=== PATIENT | female | born 1940 | race Caucasian/White ===

== ENCOUNTER → 2017-02-05 | Outpatient (CLI) | payer MEDICARE ==
[~2017-02-05] MED LIST: ASPIRIN CHEWABL81 MG PO; CALCIUM + D SO1 EACH PO; FISH OIL 1,0001 EACH PO; FUROSEMIDE40 MG PO; IMDUR ER TAB 6060 MG PO; LEVAQUIN750 MG PO; LEVOCETIRIZINE D5 MG PO; LEVOTHYROXINE125 MCG PO; LOPRESSOR 25 MG25 MG PO; MEDROL DOSEPAK 24 MG PO; MONTELUKAST SOD10 MG PO; MUCINEX PO; NEURONTIN 300300 MG PO; NORVASC 5 MG TAB5 MG PO; OXYCODONE HCL5 MG PO; PERCOCET 10-321 EACH PO; PLAVIX 75 MG TA75 MG PO; PRAVACHOL40 MG PO; PROTONIX40 MG PO; SERTRALINE HCL100 MG PO; TRAMADOL HCL50 MG PO; VITAMIN B-1000 MCG/M IM; ZOFRAN4 MG PO
== END ==
LOC: HEART 5 13:37
DX: Z01.811 Encounter for preprocedural respiratory examination (principal); J44.9 Chronic obstructive pulmonary disease, unspecified; R06.02 Shortness of breath; F17.210 Nicotine dependence, cigarettes, uncomplicated; R94.2 Abnormal results of pulmonary function studies
CPT/HCPCS: 71020-FX; 94060; 94729

== ENCOUNTER 2017-04-30 01:04 | Emergency (ER) | payer MEDICARE ==
[~2017-04-30 01:04] MED LIST changes: -ASPIRIN CHEWABL81 MG PO; -CALCIUM + D SO1 EACH PO; -FISH OIL 1,0001 EACH PO; -NORVASC 5 MG TAB5 MG PO; -OXYCODONE HCL5 MG PO; -PERCOCET 10-321 EACH PO
[2017-04-30 02:18] LABS: HEMOGLOBIN 10.2 gm/dl (12.3-15.3); RED BLOOD COUNT 4.04 M/UL (4.00-5.10); WHITE BLOOD COUNT 9.9 K/UL (4.5-11.0)
[2017-04-30 02:27] LABS: BUN/CREATININE RATIO 13 (0-10)
[2017-05-02] MEDS ORDERED: FISH OIL 1,0001 EACH PO (10:11)
[2017-05-02] MEDS ORDERED: CALCIUM + D SO1 EACH PO (10:11)
[2017-05-02] MEDS ORDERED: ASPIRIN CHEWABL81 MG PO (10:12)
[2017-05-02] MEDS ORDERED: NORVASC 5 MG TAB5 MG PO (10:12)
[2017-05-02] MEDS ORDERED: OXYCODONE HCL5 MG PO (10:13)
[2017-05-02] MEDS ORDERED: PERCOCET 10-321 EACH PO (13:50)
== END 2017-04-30 05:00 | disposition home or self-care (01) ==
LOC: ER1 01:04
PROVIDERS: Physician Assistant
DX: S52.91XA Unspecified fracture of right forearm, initial encounter for closed fracture (principal); S09.90XA Unspecified injury of head, initial encounter; Z79.82 Long term (current) use of aspirin; Z79.899 Other long term (current) drug therapy; Z88.0 Allergy status to penicillin; Z88.6 Allergy status to analgesic agent; W22.8XXA Striking against or struck by other objects, initial encounter
CPT/HCPCS: 36415; 70450; 71010; 72125; 72170; 73110; 73130; 80053; 82550; 82553; 83874; 84484; 85025; 93005; 96374; 96375; 99284; J2270; J2405

== ENCOUNTER → 2017-05-02 | Day surgery (SDC) | payer MEDICARE ==
[~2017-05-02] VITALS: Ht 167.6 cm; Wt 49.4 kg
[~2017-05-02] MED LIST changes: +ASPIRIN CHEWABL81 MG PO; +CALCIUM + D SO1 EACH PO; +FISH OIL 1,0001 EACH PO; +NORVASC 5 MG TAB5 MG PO; +OXYCODONE HCL5 MG PO; +PERCOCET 10-321 EACH PO
[2017-05-02 09:30] LABS: HEMOGLOBIN 10.6 gm/dl (12.3-15.3); RED BLOOD COUNT 4.13 M/UL (4.00-5.10); WHITE BLOOD COUNT 15.1 K/UL (4.5-11.0)
[2017-05-02 09:44] LABS: BUN/CREATININE RATIO 23 (0-10)
== END | disposition home or self-care (01) ==
LOC: OR 08:24
PROVIDERS: Orthopaedic Surgery
PROC: 0PSH04Z Reposition Right Radius with Internal Fixation Device, Open Approach (ICD-10-PCS; principal; 2017-05-02 13:15)
DX: S52.571A Other intraarticular fracture of lower end of right radius, initial encounter for closed fracture (principal); I10 Essential (primary) hypertension; J44.9 Chronic obstructive pulmonary disease, unspecified; K21.9 Gastro-esophageal reflux disease without esophagitis; G89.29 Other chronic pain; M54.9 Dorsalgia, unspecified; M81.0 Age-related osteoporosis without current pathological fracture; M19.90 Unspecified osteoarthritis, unspecified site; F32.9 Major depressive disorder, single episode, unspecified; Z85.3 Personal history of malignant neoplasm of breast; Z87.01 Personal history of pneumonia (recurrent); Z87.891 Personal history of nicotine dependence; Z88.0 Allergy status to penicillin; Z88.8 Allergy status to other drugs, medicaments and biological substances; Z79.02 Long term (current) use of antithrombotics/antiplatelets; Z79.82 Long term (current) use of aspirin; Z79.891 Long term (current) use of opiate analgesic; Z79.899 Other long term (current) drug therapy; Z95.0 Presence of cardiac pacemaker; Z98.890 Other specified postprocedural states; W01.10XA Fall on same level from slipping, tripping and stumbling with subsequent striking against unspecified object, initial encounter; Y92.000 Kitchen of unspecified non-institutional (private) residence as the place of occurrence of the external cause
CPT/HCPCS: 36415; 71010; 73100; 76000; 80048; 85027; 93005; C1713; J2250; J3010; J7120

== ENCOUNTER → 2017-08-09 | Outpatient (CLI) | payer MEDICARE | LOC: CT 12:03 | DX: C50.912 Malignant neoplasm of unspecified site of left female breast (principal); J84.9 Interstitial pulmonary disease, unspecified; M19.012 Primary osteoarthritis, left shoulder | CPT/HCPCS: 36415; 71250; 82565; 84520; Q9962 ==